=== PATIENT | male | born 1995 | race Caucasian/White ===

== ENCOUNTER 2022-08-11 11:36 | Emergency (ER) | payer OTHER ==
[~2022-08-11] VITALS: Ht 177.8 cm; Wt 59.0 kg
[2022-08-11] MEDS ORDERED: [UNRECOGNIZED DRUG - SUPPLY] (15:32)
[2022-08-11] MEDS ORDERED: KETO10TA2 PO (15:35)
[2022-08-11] MEDS ORDERED: AMOX1TAB5 PO (15:35)
== END 2022-08-11 16:48 | disposition home or self-care (01) ==
LOC: ER 11:36
DX: J03.80 Acute tonsillitis due to other specified organisms (principal); B96.89 Other specified bacterial agents as the cause of diseases classified elsewhere; Z20.822 Contact with and (suspected) exposure to COVID-19